=== PATIENT | male | born 1970 | race Caucasian/White ===

== ENCOUNTER 2023-01-22 23:26 | Emergency (ER) | payer OTHER ==
[~2023-01-22 23:26] MED LIST: CIPRO500 MG PO; LISINOPRIL10 MG PO; NKHM
== END 2023-01-23 00:06 | disposition home or self-care (01) ==
LOC: ED 23:26
DX: S05.01XA Injury of conjunctiva and corneal abrasion without foreign body, right eye, initial encounter (principal); W51.XXXA Accidental striking against or bumped into by another person, initial encounter; Y93.89 Activity, other specified; Y92.89 Other specified places as the place of occurrence of the external cause; Y99.8 Other external cause status

== ENCOUNTER 2023-03-02 13:05 | Emergency (ER) | payer OTHER | END 2023-03-02 18:19 | disposition home or self-care (01) | LOC: ED 13:05 | DX: S20.211A Contusion of right front wall of thorax, initial encounter (principal); Z79.899 Other long term (current) drug therapy; W51.XXXA Accidental striking against or bumped into by another person, initial encounter; Y93.89 Activity, other specified; Y92.89 Other specified places as the place of occurrence of the external cause; Y99.8 Other external cause status ==

== ENCOUNTER 2023-12-29 16:37 | Emergency (ER) | payer OTHER ==
[~2023-12-29] VITALS: Ht 193 cm; Wt 158.8 kg
[2023-12-29] MEDS ORDERED: ACETAMINOPHEN 325 MG TAB PO ONE (16:40)
[2023-12-29] MEDS ORDERED: Bacitracin Zinc 14 GM TUBE T ONE (16:40)
[2023-12-29] MEDS ORDERED: METFORMIN HYD1000 MG PO (17:23)
[2023-12-29] MEDS ORDERED: HYDROCHLOROTHIA25 M1 PO (17:24)
== END 2023-12-29 18:36 | disposition home or self-care (01) ==
LOC: ED 16:37
DX: S81.011A Laceration without foreign body, right knee, initial encounter (principal); I10 Essential (primary) hypertension; E11.9 Type 2 diabetes mellitus without complications; Z98.890 Other specified postprocedural states; W01.10XA Fall on same level from slipping, tripping and stumbling with subsequent striking against unspecified object, initial encounter; Y93.89 Activity, other specified; Y92.89 Other specified places as the place of occurrence of the external cause; Y99.0 Civilian activity done for income or pay

== ENCOUNTER 2024-05-22 20:02 | Emergency (ER) | payer OTHER ==
[~2024-05-22] VITALS: Ht 193 cm; Wt 158.8 kg
[~2024-05-22 20:02] MED LIST changes: +HYDROCHLOROTHIA25 M1 PO; +METFORMIN HYD1000 MG PO
[2024-05-22 21:27] LABS: BASO % 0.3 % (0.0-1.0); EOS % 0.1 % (1.0-4.0); HEMATOCRIT 48.6 % (42.0-52.0); LYMPH # 1.4 10*3/uL (1.3-4.4); LYMPH % 10.8 % (27.0-41.0); MEAN CELL VOLUME 90.8 fl (80.0-94.0); MEAN CORPUSCULAR HGB 30.3 pg (27.0-31.0); MEAN CORPUSCULAR HGB CONC 33.3 g/dl (33.0-37.0); MEAN PLATELET VOLUME 10.5 fl (9.6-12.3); MONO # 0.5 10*3/uL (0.1-1.0); NEUT % 84.4 % (47.0-73.0); PLATELET COUNT AUTOMATED 252 10*3/uL (130-400); RED BLOOD COUNT 5.35 10*6/uL (4.50-5.90); RED CELL DISTRI WIDTH 12.8 % (0-14.5)
[2024-05-22 21:38] LABS: ACT PARTIAL THROMBO TIME 25.2 SECONDS (20.0-32.1)
[2024-05-22 21:50] LABS: ALKALINE PHOSPHATASE 70 U/L (46-116); BUN 15 mg/dl (9-23); CHLORIDE 101 mmol/L (98-107); LIPASE 35 U/L (12-53); POTASSIUM 4.1 mmol/L (3.4-5.1); SGPT/ALT 19 U/L (5-49); TOTAL PROTEIN 7.4 gm/dL (6.0-8.0)
== END 2024-05-23 00:19 | disposition home or self-care (01) ==
LOC: ED 20:02
PROVIDERS: Internal Medicine
DX: E86.0 Dehydration (principal); R53.83 Other fatigue; E11.9 Type 2 diabetes mellitus without complications; I10 Essential (primary) hypertension; Z98.890 Other specified postprocedural states

== ENCOUNTER 2024-07-22 01:07 | Emergency (ER) | payer OTHER ==
[~2024-07-22] VITALS: Ht 193 cm; Wt 172.9 kg
[2024-07-22 01:41] LABS: BASO % 0.2 % (0.0-1.0); EOS # 0.1 10*3/uL (0.0-0.4); EOS % 0.6 % (1.0-4.0); HEMATOCRIT 40.7 % (42.0-52.0); LYMPH # 1.4 10*3/uL (1.3-4.4); LYMPH % 11.3 % (27.0-41.0); MEAN CELL VOLUME 90.8 fl (80.0-94.0); MEAN CORPUSCULAR HGB 29.9 pg (27.0-31.0); MEAN CORPUSCULAR HGB CONC 32.9 g/dl (33.0-37.0); MONO # 0.8 10*3/uL (0.1-1.0); MONO % 6.3 % (3.0-9.0); NEUT % 81.1 % (47.0-73.0); PLATELET COUNT AUTOMATED 255 10*3/uL (130-400); RED BLOOD COUNT 4.48 10*6/uL (4.50-5.90); RED CELL DISTRI WIDTH 12.7 % (0-14.5); WHITE BLOOD COUNT 12.3 10*3/uL (4.8-10.8)
[2024-07-22 02:22] LABS: ALKALINE PHOSPHATASE 61 U/L (46-116); BUN 13 mg/dl (9-23); CHLORIDE 99 mmol/L (98-107); LIPASE 50 U/L (12-53); POTASSIUM 3.7 mmol/L (3.4-5.1); SGPT/ALT 16 U/L (5-49); TOTAL PROTEIN 7.6 gm/dL (6.0-8.0)
[2024-07-22] MEDS ORDERED: Ketorolac Tromethamine 30 MG/ML VIAL IV ONE (02:55)
[2024-07-22] MEDS ORDERED: SODIUM CHLORIDE 0.9% 1,000 ML IV ONE (02:55)
[2024-07-22] MEDS ORDERED: INSULIN REGULAR, HUMAN 1 UNIT/0.01 ML IV ONE (02:55)
[2024-07-22] MEDS ORDERED: METHOCARBAMOL 500 MG TAB PO ONE (03:45)
[2024-07-22] MEDS ORDERED: NAPROSYN500 MG PO (04:05)
[2024-07-22] MEDS ORDERED: METHOCARBAMOL750 M1 PO (04:05)
[2024-07-23] MEDS ORDERED: RYBELSUS7 MG PO (20:38)
[2024-07-23] MEDS ORDERED: AMOX-CLAV 875-1 EACH PO (23:53)
[2024-07-23] MEDS ORDERED: HYDROCODONE-AC1 EAC1 PO (23:53)
== END 2024-07-22 04:17 | disposition home or self-care (01) ==
LOC: ED 01:07
PROVIDERS: Internal Medicine
DX: S29.012A Strain of muscle and tendon of back wall of thorax, initial encounter (principal); D72.829 Elevated white blood cell count, unspecified; R00.0 Tachycardia, unspecified; I10 Essential (primary) hypertension; E11.65 Type 2 diabetes mellitus with hyperglycemia; Z98.890 Other specified postprocedural states; X58.XXXA Exposure to other specified factors, initial encounter; Y93.89 Activity, other specified; Y92.009 Unspecified place in unspecified non-institutional (private) residence as the place of occurrence of the external cause; Y99.8 Other external cause status

== ENCOUNTER 2024-07-23 19:54 | Emergency (ER) | payer OTHER ==
[~2024-07-23] VITALS: Ht 193 cm; Wt 163.3 kg
[~2024-07-23 19:54] MED LIST changes: +METHOCARBAMOL750 M1 PO; +NAPROSYN500 MG PO
[2024-07-23] MEDS ORDERED: RYBELSUS7 MG PO (20:38)
[2024-07-23] MEDS ORDERED: SODIUM CHLORIDE 0.9% 1,000 ML IV ONE (20:50)
[2024-07-23] MEDS ORDERED: Ketorolac Tromethamine 15 MG/ML VIAL IV ONE (20:55)
[2024-07-23] MEDS ORDERED: methylPREDNISolone sod succ 125 MG VIAL IV ONE (20:55)
[2024-07-23 21:01] LABS: BASO % 0.3 % (0.0-1.0); EOS # 0.2 10*3/uL (0.0-0.4); HEMATOCRIT 39.9 % (42.0-52.0); LYMPH # 1.2 10*3/uL (1.3-4.4); LYMPH % 8.1 % (27.0-41.0); MEAN CELL VOLUME 90.3 fl (80.0-94.0); MEAN CORPUSCULAR HGB 30.3 pg (27.0-31.0); MEAN CORPUSCULAR HGB CONC 33.6 g/dl (33.0-37.0); MEAN PLATELET VOLUME 9.5 fl (9.6-12.3); MONO # 0.9 10*3/uL (0.1-1.0); NEUT # 12.7 10*3/uL (2.3-7.9); NEUT % 84.3 % (47.0-73.0); PLATELET COUNT AUTOMATED 292 10*3/uL (130-400); RED BLOOD COUNT 4.42 10*6/uL (4.50-5.90); RED CELL DISTRI WIDTH 12.6 % (0-14.5)
[2024-07-23] MEDS ORDERED: IOHEXOL 350 MG/ML 100 ML VIAL IV ONE (21:05)
[2024-07-23] MEDS ORDERED: SODIUM CHLORIDE 0.9% 100 ML BAG IV ONE (21:05)
[2024-07-23 21:17] LABS: BUN 15 mg/dl (9-23); CHLORIDE 101 mmol/L (98-107); POTASSIUM 3.8 mmol/L (3.4-5.1)
[2024-07-23 23:04] LABS: BILIRUBIN Negative (Negative); BLOOD Negative (Negative); CLARITY Clear (Clear); COLOR Yellow (Yellow); GLUCOSE 1+ (Negative); KETONE 2+ (Negative); LEUKO ESTERASE Negative (Negative); NITRITE Negative (Negative); PH 5.5 (4.5-8.0); SPECIFIC GRAVITY >= 1.030 (1.001-1.030)
[2024-07-23 23:18] LABS: HYALINE CAST 0-2; RBC 0-2 rbc/hpf (0-2)
[2024-07-23] MEDS ORDERED: Amoxicillin/Clavulanate Pota 875 MG TAB PO ONE (23:45)
[2024-07-23] MEDS ORDERED: HYDROCODONE-AC1 EAC1 PO (23:53)
[2024-07-23] MEDS ORDERED: AMOX-CLAV 875-1 EACH PO (23:53)
== END 2024-07-24 00:44 | disposition home or self-care (01) ==
LOC: ED 19:54
PROVIDERS: Nurse Practitioner Family
DX: S29.012A Strain of muscle and tendon of back wall of thorax, initial encounter (principal); I10 Essential (primary) hypertension; D72.829 Elevated white blood cell count, unspecified; J90 Pleural effusion, not elsewhere classified; E11.9 Type 2 diabetes mellitus without complications; Z98.890 Other specified postprocedural states; X58.XXXA Exposure to other specified factors, initial encounter; Y93.89 Activity, other specified; Y92.89 Other specified places as the place of occurrence of the external cause; Y99.8 Other external cause status

== ENCOUNTER 2024-09-01 16:15 | Emergency (ER) | payer OTHER ==
[~2024-09-01] VITALS: Ht 193 cm; Wt 152.4 kg
[~2024-09-01 16:15] MED LIST changes: +AMOX-CLAV 875-1 EACH PO; +HYDROCODONE-AC1 EAC1 PO; +RYBELSUS7 MG PO
[2024-09-01 16:58] LABS: BASO % 0.2 % (0.0-1.0); EOS % 0.2 % (1.0-4.0); HEMATOCRIT 34.2 % (42.0-52.0); LYMPH # 1.5 10*3/uL (1.3-4.4); LYMPH % 9.9 % (27.0-41.0); MEAN CORPUSCULAR HGB 27.6 pg (27.0-31.0); MEAN CORPUSCULAR HGB CONC 30.7 g/dl (33.0-37.0); MEAN PLATELET VOLUME 9.3 fl (9.6-12.3); MONO # 0.6 10*3/uL (0.1-1.0); MONO % 3.5 % (3.0-9.0); NEUT # 13.3 10*3/uL (2.3-7.9); NEUT % 85.6 % (47.0-73.0); PLATELET COUNT AUTOMATED 390 10*3/uL (130-400); RED CELL DISTRI WIDTH 13.5 % (0-14.5); WHITE BLOOD COUNT 15.6 10*3/uL (4.8-10.8)
[2024-09-01 17:19] LABS: ALKALINE PHOSPHATASE 84 U/L (46-116); BUN 14 mg/dl (9-23); CHLORIDE 99 mmol/L (98-107); POTASSIUM 4.2 mmol/L (3.4-5.1); SGPT/ALT 66 U/L (5-49); TOTAL PROTEIN 7.6 gm/dL (6.0-8.0)
[2024-09-01] MEDS ORDERED: Ketorolac Tromethamine 30 MG/ML VIAL IV ONE (17:50)
[2024-09-01] MEDS ORDERED: SODIUM CHLORIDE 0.9% 100 ML BAG IV ONE (18:40)
[2024-09-01] MEDS ORDERED: IOHEXOL 350 MG/ML 100 ML VIAL IV ONE ×2 (18:40→21:32)
[2024-09-01] MEDS ORDERED: SODIUM CHLORIDE 0.9% 100 ML IV ONE (21:32)
[2024-09-01] MEDS ORDERED: BUMETANIDE 1 MG/4 ML VIAL IV ONE (22:45)
== END 2024-09-01 23:59 | disposition left against medical advice (07) ==
LOC: ED 16:15
PROVIDERS: Emergency Medicine
DX: A41.9 Sepsis, unspecified organism (principal); R07.89 Other chest pain; R06.00 Dyspnea, unspecified; I10 Essential (primary) hypertension; E11.9 Type 2 diabetes mellitus without complications; J90 Pleural effusion, not elsewhere classified; R79.89 Other specified abnormal findings of blood chemistry; D72.829 Elevated white blood cell count, unspecified; D64.9 Anemia, unspecified; J18.9 Pneumonia, unspecified organism; E43 Unspecified severe protein-calorie malnutrition; Z68.1 Body mass index [BMI] 19.9 or less, adult; Z53.29 Procedure and treatment not carried out because of patient's decision for other reasons; Z98.890 Other specified postprocedural states

== ENCOUNTER 2024-09-02 11:32 | Emergency (ER) | payer OTHER ==
[~2024-09-02] VITALS: Wt 152.4 kg
[2024-09-02 12:58] LABS: BASO % 0.3 % (0.0-1.0); EOS % 0.3 % (1.0-4.0); LYMPH # 1.4 10*3/uL (1.3-4.4); MEAN CELL VOLUME 89.4 fl (80.0-94.0); MEAN CORPUSCULAR HGB 27.5 pg (27.0-31.0); MEAN CORPUSCULAR HGB CONC 30.8 g/dl (33.0-37.0); MEAN PLATELET VOLUME 9.4 fl (9.6-12.3); MONO # 0.6 10*3/uL (0.1-1.0); MONO % 3.9 % (3.0-9.0); NEUT % 84.9 % (47.0-73.0); PLATELET COUNT AUTOMATED 439 10*3/uL (130-400); RED BLOOD COUNT 4.14 10*6/uL (4.50-5.90); RED CELL DISTRI WIDTH 13.5 % (0-14.5); WHITE BLOOD COUNT 14.1 10*3/uL (4.8-10.8)
[2024-09-02 13:17] LABS: BUN 11 mg/dl (9-23); CHLORIDE 99 mmol/L (98-107); POTASSIUM 3.8 mmol/L (3.4-5.1)
[2024-09-02] MEDS ORDERED: Acetaminophen/Hydrocodone 5 MG/325 MG TABLET PO ONE (13:30)
[2024-09-02] MEDS ORDERED: Ampicillin Sodium/Sulbactam 3 GM in SODIUM CHLORIDE 0.9% 100 ML IV ONE (14:05)
== END 2024-09-02 15:14 | disposition left against medical advice (07) ==
LOC: ED 11:32
PROVIDERS: Nurse Practitioner Family
DX: J90 Pleural effusion, not elsewhere classified (principal); D64.9 Anemia, unspecified; Z53.29 Procedure and treatment not carried out because of patient's decision for other reasons; Z98.890 Other specified postprocedural states

== ENCOUNTER 2025-01-04 16:51 | Inpatient (IN) | payer OTHER ==
[~2025-01-04] VITALS: Ht 193 cm; Wt 147.4 kg
[2025-01-04 17:01] VITALS: BP 137/85
[2025-01-04 17:42] LABS: BASO % 0.3 % (0.0-1.0); EOS % 0.3 % (1.0-4.0); HEMATOCRIT 36.5 % (42.0-52.0); MEAN CELL VOLUME 86.5 fl (80.0-94.0); MEAN CORPUSCULAR HGB 26.3 pg (27.0-31.0); MEAN CORPUSCULAR HGB CONC 30.4 g/dl (33.0-37.0); MONO # 0.8 10*3/uL (0.1-1.0); MONO % 7.3 % (3.0-9.0); NEUT # 8.9 10*3/uL (2.3-7.9); NEUT % 77.9 % (47.0-73.0); PLATELET COUNT AUTOMATED 422 10*3/uL (130-400); RED BLOOD COUNT 4.22 10*6/uL (4.50-5.90); WHITE BLOOD COUNT 11.4 10*3/uL (4.8-10.8)
[2025-01-04 18:03] LABS: ALKALINE PHOSPHATASE 98 U/L (46-116); BUN 16 mg/dl (9-23); CHLORIDE 97 mmol/L (98-107); POTASSIUM 4.5 mmol/L (3.4-5.1); SGPT/ALT 61 U/L (5-49); TOTAL PROTEIN 7.9 gm/dL (6.0-8.0)
[2025-01-04 19:35] VITALS: BP 125/78
[2025-01-04] MEDS ORDERED: AZITHROMYCIN 250 ML IV ONE (20:25)
[2025-01-04] MEDS ORDERED: cefTRIAXone Sodium 1 GM/10 ML SYR IV ONE (20:25)
[2025-01-04] MEDS ORDERED: IOHEXOL 300 MG/ML 100 ML VIAL IV ONE (20:35)
[2025-01-04] MEDS ORDERED: TEMAZEPAM 15 MG CAP PO PRN (21:05)
[2025-01-04] MEDS ORDERED: BISACODYL 10 MG SUPP R PRN (21:05)
[2025-01-04] MEDS ORDERED: BISACODYL 5 MG TAB PO PRN (21:05)
[2025-01-04] MEDS ORDERED: Acetaminophen/Hydrocodone 5 MG/325 MG TABLET PO PRN (21:05)
[2025-01-04] MEDS ORDERED: Ondansetron Hydrochloride 4 MG/2 ML VIAL IV PRN (21:05)
[2025-01-04] MEDS ORDERED: Magnesium Hydroxide 30 ML UDC PO PRN (21:05)
[2025-01-04] MEDS ORDERED: ACETAMINOPHEN 650 MG SUPP R PRN (21:05)
[2025-01-04] MEDS ORDERED: ACETAMINOPHEN 325 MG TAB PO PRN (21:05)
[2025-01-04] MEDS ORDERED: DEXTROSE 10 % IN WATER 250 ML IV PRN (22:15)
[2025-01-04 23:15] VITALS: BP 138/76
[2025-01-05 01:52] LABS: BASO % 0.2 % (0.0-1.0); EOS % 0.2 % (1.0-4.0); HEMATOCRIT 34.4 % (42.0-52.0); MEAN CELL VOLUME 84.9 fl (80.0-94.0); MEAN CORPUSCULAR HGB 26.4 pg (27.0-31.0); MEAN CORPUSCULAR HGB CONC 31.1 g/dl (33.0-37.0); MEAN PLATELET VOLUME 8.8 fl (9.6-12.3); MONO # 0.8 10*3/uL (0.1-1.0); MONO % 6.3 % (3.0-9.0); NEUT # 9.7 10*3/uL (2.3-7.9); NEUT % 78.3 % (47.0-73.0); PLATELET COUNT AUTOMATED 438 10*3/uL (130-400); RED BLOOD COUNT 4.05 10*6/uL (4.50-5.90); RED CELL DISTRI WIDTH 16.2 % (0-14.5); WHITE BLOOD COUNT 12.4 10*3/uL (4.8-10.8)
[2025-01-05 02:36] LABS: ALKALINE PHOSPHATASE 90 U/L (46-116); BUN 12 mg/dl (9-23); CHLORIDE 96 mmol/L (98-107); CHOLESTEROL 96 mg/dL (<200); FREE T4 1.09 ng/dl (0.89-1.76); POTASSIUM 4.3 mmol/L (3.4-5.1); SGPT/ALT 52 U/L (5-49); TOTAL PROTEIN 7.5 gm/dL (6.0-8.0); TRIGLYCERIDES 76 mg/dl (<150)
[2025-01-05 02:43] LABS: LDL CHOLESTEROL 62 mg/dL (9-159)
[2025-01-05] MEDS ORDERED: SODIUM CHLORIDE 0.9% 1,000 ML IV ONE (03:05)
[2025-01-05] MEDS ORDERED: HEPARIN SODIUM 250 ML IV SCH (03:30)
[2025-01-05 05:00] LABS: VITAMIN D, 25-HYDROXY 8.5 ng/mL (30-100)
[2025-01-05] MEDS ORDERED: INSULIN LISPRO 1 UNIT/0.01 ML SQ SCH (07:30)
[2025-01-05] MEDS ORDERED: SODIUM CHLORIDE 0.9% 100 ML IV ONE (07:48)
[2025-01-05] MEDS ORDERED: IOHEXOL 350 MG/ML 100 ML VIAL IV ONE (07:48)
[2025-01-05 08:00] VITALS: BP 145/92
[2025-01-05] MEDS ORDERED: LISINOPRIL 10 MG TAB PO SCH (10:00)
[2025-01-05] MEDS ORDERED: hydroCHLOROthiazide 25 MG TAB PO SCH (10:00)
[2025-01-05] MEDS ORDERED: Enoxaparin Sodium 40 MG/0.4 ML SYR SC SCH (10:00)
[2025-01-05] MEDS ORDERED: ERGOCALCIFEROL 50,000 IU CAP (1.25 MG) PO SCH (10:00)
[2025-01-05 12:00] VITALS: BP 124/75
[2025-01-05 16:00] VITALS: BP 131/78
[2025-01-05] MEDS ORDERED: CEFEPIME HCL IN DEXTROSE 5 % 50 ML IV SCH (18:00)
[2025-01-05] MEDS ORDERED: SODIUM CHLORIDE 0.9% 1,000 ML IV SCH (19:05)
[2025-01-05 20:00] VITALS: BP 104/96; BP 113/67
[2025-01-05] MEDS ORDERED: AZITHROMYCIN 250 ML IV SCH (20:00)
[2025-01-05] MEDS ORDERED: cefTRIAXone Sodium 1 GM in SYRINGE INFUSION 10 ML IV SCH (21:00)
[2025-01-06] VITALS: BP 101/51
[2025-01-06 05:06] LABS: HBsAG SCREEN Negative (Negative); HCV Ab Non Reactive (Non Reactive); HEP B CORE Ab, IgM Negative (Negative)
[2025-01-06 08:00] VITALS: BP 109/51
[2025-01-06 12:00] VITALS: BP 109/51; BP 129/64
[2025-01-06 16:00] VITALS: BP 119/68
[2025-01-06 20:00] VITALS: BP 106/55
[2025-01-07] VITALS: BP 108/57
[2025-01-07 06:10] LABS: BASO # 0.1 10*3/uL (0.0-0.1); BASO % 0.4 % (0.0-1.0); EOS # 0.1 10*3/uL (0.0-0.4); EOS % 0.5 % (1.0-4.0); HEMATOCRIT 37.2 % (42.0-52.0); MEAN CELL VOLUME 86.1 fl (80.0-94.0); MEAN CORPUSCULAR HGB 25.9 pg (27.0-31.0); MEAN CORPUSCULAR HGB CONC 30.1 g/dl (33.0-37.0); MEAN PLATELET VOLUME 9.2 fl (9.6-12.3); MONO # 0.9 10*3/uL (0.1-1.0); MONO % 6.6 % (3.0-9.0); NEUT # 10.7 10*3/uL (2.3-7.9); NEUT % 78.3 % (47.0-73.0); PLATELET COUNT AUTOMATED 491 10*3/uL (130-400); RED BLOOD COUNT 4.32 10*6/uL (4.50-5.90); RED CELL DISTRI WIDTH 16.3 % (0-14.5); WHITE BLOOD COUNT 13.6 10*3/uL (4.8-10.8)
[2025-01-07 06:38] LABS: BUN 9 mg/dl (9-23); CHLORIDE 96 mmol/L (98-107); POTASSIUM 3.9 mmol/L (3.4-5.1)
[2025-01-07 08:00] VITALS: BP 106/69
[2025-01-07 12:21] VITALS: BP 104/60
[2025-01-07 16:00] VITALS: BP 114/69
[2025-01-07 20:00] VITALS: BP 115/69
[2025-01-08] VITALS: BP 108/68
[2025-01-08 06:18] LABS: BASO # 0.1 10*3/uL (0.0-0.1); BASO % 0.4 % (0.0-1.0); EOS # 0.1 10*3/uL (0.0-0.4); EOS % 0.5 % (1.0-4.0); HEMATOCRIT 37.9 % (42.0-52.0); MEAN CELL VOLUME 84.4 fl (80.0-94.0); MEAN CORPUSCULAR HGB 26.1 pg (27.0-31.0); MEAN CORPUSCULAR HGB CONC 30.9 g/dl (33.0-37.0); MONO # 0.9 10*3/uL (0.1-1.0); MONO % 5.9 % (3.0-9.0); NEUT # 11.3 10*3/uL (2.3-7.9); NEUT % 75.6 % (47.0-73.0); PLATELET COUNT AUTOMATED 499 10*3/uL (130-400); RED BLOOD COUNT 4.49 10*6/uL (4.50-5.90); RED CELL DISTRI WIDTH 16.3 % (0-14.5)
[2025-01-08 06:24] LABS: BUN 11 mg/dl (9-23); CHLORIDE 97 mmol/L (98-107); POTASSIUM 4.3 mmol/L (3.4-5.1)
[2025-01-08 08:00] VITALS: BP 123/59
[2025-01-08 11:58] VITALS: BP 97/53
[2025-01-08 16:00] VITALS: BP 103/68
[2025-01-09] VITALS: BP 99/59
[2025-01-09 04:00] VITALS: BP 97/59
[2025-01-09 07:01] LABS: BASO # 0.1 10*3/uL (0.0-0.1); BASO % 0.4 % (0.0-1.0); EOS # 0.2 10*3/uL (0.0-0.4); EOS % 1.1 % (1.0-4.0); HEMATOCRIT 39.3 % (42.0-52.0); MEAN CELL VOLUME 85.4 fl (80.0-94.0); MEAN CORPUSCULAR HGB CONC 31.6 g/dl (33.0-37.0); MONO # 0.7 10*3/uL (0.1-1.0); MONO % 5.4 % (3.0-9.0); NEUT # 9.8 10*3/uL (2.3-7.9); NEUT % 72.1 % (47.0-73.0); PLATELET COUNT AUTOMATED 503 10*3/uL (130-400); RED CELL DISTRI WIDTH 16.4 % (0-14.5); WHITE BLOOD COUNT 13.6 10*3/uL (4.8-10.8)
[2025-01-09 07:24] LABS: BUN 14 mg/dl (9-23); CHLORIDE 97 mmol/L (98-107); POTASSIUM 4.5 mmol/L (3.4-5.1)
[2025-01-09 08:00] VITALS: BP 115/68
[2025-01-09 12:00] VITALS: BP 115/69
[2025-01-09 16:00] VITALS: BP 129/67
[2025-01-09 20:00] VITALS: BP 118/73
[2025-01-10] VITALS: BP 120/75
[2025-01-10 06:49] LABS: BASO # 0.1 10*3/uL (0.0-0.1); BASO % 0.5 % (0.0-1.0); EOS # 0.2 10*3/uL (0.0-0.4); EOS % 1.4 % (1.0-4.0); HEMATOCRIT 41.2 % (42.0-52.0); MEAN CORPUSCULAR HGB 25.7 pg (27.0-31.0); MEAN CORPUSCULAR HGB CONC 29.9 g/dl (33.0-37.0); MEAN PLATELET VOLUME 8.9 fl (9.6-12.3); MONO # 0.7 10*3/uL (0.1-1.0); MONO % 5.2 % (3.0-9.0); NEUT # 8.7 10*3/uL (2.3-7.9); NEUT % 67.8 % (47.0-73.0); PLATELET COUNT AUTOMATED 496 10*3/uL (130-400); RED BLOOD COUNT 4.79 10*6/uL (4.50-5.90); RED CELL DISTRI WIDTH 16.4 % (0-14.5); WHITE BLOOD COUNT 12.9 10*3/uL (4.8-10.8)
[2025-01-10 06:56] LABS: BUN 12 mg/dl (9-23); CHLORIDE 98 mmol/L (98-107)
[2025-01-10 08:00] VITALS: BP 101/67
[2025-01-10 12:00] VITALS: BP 109/72
[2025-01-10] MEDS ORDERED: VIBRA-TAB100 MG PO (14:04)
== END 2025-01-10 15:16 | disposition home or self-care (01) | DRG 871 ==
LOC: ED 16:51 → 5E 20:31 → EDHOLD 20:31 → 5E 22:48
PROVIDERS: Internal Medicine; Nurse Practitioner Family; Student in an Organized Health Care Education/Training Program; ADMIT Internal Medicine; ATTEND Internal Medicine
DX: A41.9 Sepsis, unspecified organism (principal); E43 Unspecified severe protein-calorie malnutrition; J85.1 Abscess of lung with pneumonia; J15.69 Pneumonia due to other Gram-negative bacteria; E87.1 Hypo-osmolality and hyponatremia; J90 Pleural effusion, not elsewhere classified; D75.839 Thrombocytosis, unspecified; R74.01 Elevation of levels of liver transaminase levels; D64.9 Anemia, unspecified; I10 Essential (primary) hypertension; E11.65 Type 2 diabetes mellitus with hyperglycemia; E66.9 Obesity, unspecified; E55.9 Vitamin D deficiency, unspecified; K76.0 Fatty (change of) liver, not elsewhere classified; Z79.899 Other long term (current) drug therapy; Z79.01 Long term (current) use of anticoagulants; Z79.2 Long term (current) use of antibiotics; Z90.49 Acquired absence of other specified parts of digestive tract; Z83.3 Family history of diabetes mellitus; Z82.49 Family history of ischemic heart disease and other diseases of the circulatory system; Z68.39 Body mass index [BMI] 39.0-39.9, adult

== ENCOUNTER 2025-01-24 19:00 | Emergency (ER) | payer OTHER ==
[~2025-01-24] VITALS: Ht 193 cm; Wt 134.3 kg
[~2025-01-24 19:00] MED LIST changes: +VIBRA-TAB100 MG PO
[2025-01-24] MEDS ORDERED: Ketorolac Tromethamine 60 MG/2 ML VIAL IM ONE (19:20)
[2025-01-24] MEDS ORDERED: HYDROCODONE-AC1 EAC1 PO (20:51)
== END 2025-01-24 21:00 | disposition home or self-care (01) ==
LOC: ED 19:00
DX: S20.212A Contusion of left front wall of thorax, initial encounter (principal); J90 Pleural effusion, not elsewhere classified; E11.9 Type 2 diabetes mellitus without complications; E87.1 Hypo-osmolality and hyponatremia; D64.9 Anemia, unspecified; I10 Essential (primary) hypertension; E11.65 Type 2 diabetes mellitus with hyperglycemia; Z90.49 Acquired absence of other specified parts of digestive tract; Z98.890 Other specified postprocedural states; W19.XXXA Unspecified fall, initial encounter; Y93.89 Activity, other specified; Y92.238 Other place in hospital as the place of occurrence of the external cause; Y99.0 Civilian activity done for income or pay

== ENCOUNTER 2025-06-04 06:56 | Inpatient (IN) | payer OTHER ==
[~2025-06-04] VITALS: Ht 193 cm; Wt 131.5 kg
[2025-06-04 07:04] VITALS: BP 93/57
[2025-06-04] MEDS ORDERED: SODIUM CHLORIDE 0.9% 1,000 ML IV ONE (07:20)
[2025-06-04 07:53] LABS: BASO # 0.1 10*3/uL (0.0-0.1); BASO % 0.4 % (0.0-1.0); EOS # 0.0 10*3/uL (0.0-0.4); EOS % 0.1 % (1.0-4.0); MEAN CELL VOLUME 88.2 fl (80.0-94.0); MEAN CORPUSCULAR HGB 28.1 pg (27.0-31.0); MEAN PLATELET VOLUME 9.3 fl (9.6-12.3); MONO # 0.8 10*3/uL (0.1-1.0); MONO % 6.1 % (3.0-9.0); NEUT # 11.0 10*3/uL (2.3-7.9); NEUT % 80.1 % (47.0-73.0); NUCLEATED RED BLOOD CELL 0.0 % (0.0-0.0); NUCLEATED RED BLOOD CELL 0.0 10*3/uL (0.0-0.0); PLATELET COUNT AUTOMATED 323 10*3/uL (130-400); RED CELL DISTRI WIDTH 14.1 % (0-14.5)
[2025-06-04 08:10] LABS: ACT PARTIAL THROMBO TIME 26.2 SECONDS (20.0-32.1)
[2025-06-04 08:12] LABS: BUN 19 mg/dl (9-23)
[2025-06-04] MEDS ORDERED: AZITHROMYCIN 250 ML IV ONE (08:50)
[2025-06-04] MEDS ORDERED: SODIUM CHLORIDE 0.9% 1,000 ML IV SCH (08:50)
[2025-06-04] MEDS ORDERED: MAGNESIUM SULFATE 100 ML IV ONE (10:00)
[2025-06-04] MEDS ORDERED: Ondansetron Hydrochloride 4 MG/2 ML VIAL IV PRN (12:20)
[2025-06-04] MEDS ORDERED: ACETAMINOPHEN 325 MG TAB PO PRN (12:20)
[2025-06-04] MEDS ORDERED: BISACODYL 5 MG TAB PO PRN (12:20)
[2025-06-04] MEDS ORDERED: DEXTROSE 50% 25 GM/50 ML VIAL IV PRN (12:35)
[2025-06-04] MEDS ORDERED: INSULIN LISPRO 1 UNIT/0.01 ML SQ SCH (16:30)
[2025-06-04 20:00] VITALS: BP 109/79
[2025-06-05] VITALS: BP 135/80
[2025-06-05] MEDS ORDERED: SODIUM CHLORIDE 0.9% 100 ML BAG IV ONE (01:25)
[2025-06-05] MEDS ORDERED: IOHEXOL 350 MG/ML 100 ML VIAL IV ONE (01:25)
[2025-06-05 06:26] LABS: BASO # 0.0 10*3/uL (0.0-0.1); BASO % 0.3 % (0.0-1.0); EOS # 0.1 10*3/uL (0.0-0.4); EOS % 0.5 % (1.0-4.0); MEAN CELL VOLUME 88.9 fl (80.0-94.0); MEAN CORPUSCULAR HGB 28.5 pg (27.0-31.0); MEAN PLATELET VOLUME 9.4 fl (9.6-12.3); MONO # 0.8 10*3/uL (0.1-1.0); MONO % 6.8 % (3.0-9.0); NEUT # 9.0 10*3/uL (2.3-7.9); NEUT % 73.2 % (47.0-73.0); NUCLEATED RED BLOOD CELL 0.0 % (0.0-0.0); NUCLEATED RED BLOOD CELL 0.0 10*3/uL (0.0-0.0); PLATELET COUNT AUTOMATED 304 10*3/uL (130-400); RED CELL DISTRI WIDTH 14.0 % (0-14.5)
[2025-06-05 06:47] LABS: BUN 13 mg/dl (9-23); FREE T4 1.11 ng/dl (0.89-1.76); SGPT/ALT 17 U/L (5-49)
[2025-06-05 08:00] VITALS: BP 110/66
[2025-06-05] MEDS ORDERED: AZITHROMYCIN 250 ML IV SCH (09:00)
[2025-06-05] MEDS ORDERED: Cefepime Hydrochloride 2 GM in SODIUM CHLORIDE 0.9% 50 ML IV SCH (10:00)
[2025-06-05 12:00] VITALS: BP 117/68
[2025-06-05 16:00] VITALS: BP 118/76
[2025-06-05 22:45] VITALS: BP 113/69
[2025-06-06 01:36] VITALS: BP 110/62
[2025-06-06 06:25] LABS: BASO # 0.0 10*3/uL (0.0-0.1); BASO % 0.4 % (0.0-1.0); EOS # 0.1 10*3/uL (0.0-0.4); EOS % 0.8 % (1.0-4.0); MEAN CELL VOLUME 89.2 fl (80.0-94.0); MEAN CORPUSCULAR HGB 28.1 pg (27.0-31.0); MEAN PLATELET VOLUME 9.4 fl (9.6-12.3); MONO # 0.7 10*3/uL (0.1-1.0); MONO % 6.5 % (3.0-9.0); NEUT # 8.1 10*3/uL (2.3-7.9); NEUT % 73.5 % (47.0-73.0); NUCLEATED RED BLOOD CELL 0.0 % (0.0-0.0); NUCLEATED RED BLOOD CELL 0.0 10*3/uL (0.0-0.0); PLATELET COUNT AUTOMATED 314 10*3/uL (130-400); RED CELL DISTRI WIDTH 13.9 % (0-14.5)
[2025-06-06 06:59] LABS: BUN 14 mg/dl (9-23)
[2025-06-06 08:00] VITALS: BP 103/65
[2025-06-06 12:00] VITALS: BP 105/72
[2025-06-06 16:00] VITALS: BP 108/63
[2025-06-06] MEDS ORDERED: Ampicillin Sodium/Sulbactam 3 GM in SODIUM CHLORIDE 0.9% 100 ML IV SCH (18:00)
[2025-06-06 20:00] VITALS: BP 133/84
[2025-06-07 04:00] VITALS: BP 108/71
[2025-06-07 06:07] LABS: BASO # 0.0 10*3/uL (0.0-0.1); BASO % 0.2 % (0.0-1.0); EOS # 0.1 10*3/uL (0.0-0.4); EOS % 1.6 % (1.0-4.0); MEAN CELL VOLUME 89.2 fl (80.0-94.0); MEAN CORPUSCULAR HGB 28.5 pg (27.0-31.0); MEAN PLATELET VOLUME 9.5 fl (9.6-12.3); MONO # 0.6 10*3/uL (0.1-1.0); MONO % 6.7 % (3.0-9.0); NEUT # 5.3 10*3/uL (2.3-7.9); NEUT % 64.7 % (47.0-73.0); NUCLEATED RED BLOOD CELL 0.0 % (0.0-0.0); NUCLEATED RED BLOOD CELL 0.0 10*3/uL (0.0-0.0); PLATELET COUNT AUTOMATED 350 10*3/uL (130-400); RED CELL DISTRI WIDTH 13.7 % (0-14.5)
[2025-06-07] MEDS ORDERED: ERGOCALCIFEROL 50,000 IU CAP (1.25 MG) PO ONE (07:15)
[2025-06-07 08:00] VITALS: BP 101/62
[2025-06-07] MEDS ORDERED: Cholecalciferol 2,000 UNIT TABLET (50 MCG) PO SCH (10:00)
[2025-06-07] MEDS ORDERED: SODIUM BICARBONATE 4.2% 5 ML VIAL ONE (10:20)
[2025-06-07] MEDS ORDERED: AMOX-CLAV 875-1 EACH PO (14:48)
[2025-06-07] MEDS ORDERED: VITAMIN D350 MCG PO (14:50)
[2025-06-07] MEDS ORDERED: VITAMIN D31250 MC2 PO (14:51)
[2025-06-07] MEDS ORDERED: METFORMIN HYD1000 MG PO (14:53)
[2025-06-07 16:00] VITALS: BP 103/64
== END 2025-06-07 18:05 | disposition left against medical advice (07) | DRG 871 ==
LOC: ED 06:56 → 4E 10:00 → EDHOLD 10:00 → 5E 13:00 → 4E 06-05 19:23
PROVIDERS: Internal Medicine; Registered Nurse; ADMIT Student in an Organized Health Care Education/Training Program; ATTEND Student in an Organized Health Care Education/Training Program
PROC: 0BBN3ZX Excision of Right Pleura, Percutaneous Approach, Diagnostic (ICD-10-PCS; principal; 2025-06-07)
DX: A41.9 Sepsis, unspecified organism (principal); E43 Unspecified severe protein-calorie malnutrition; J18.9 Pneumonia, unspecified organism; E87.1 Hypo-osmolality and hyponatremia; J91.8 Pleural effusion in other conditions classified elsewhere; E83.42 Hypomagnesemia; D64.9 Anemia, unspecified; I10 Essential (primary) hypertension; E11.9 Type 2 diabetes mellitus without complications; Z53.29 Procedure and treatment not carried out because of patient's decision for other reasons; Z91.148 Patient's other noncompliance with medication regimen for other reason; Z79.899 Other long term (current) drug therapy; Z79.01 Long term (current) use of anticoagulants; Z79.2 Long term (current) use of antibiotics; Z90.49 Acquired absence of other specified parts of digestive tract; Z83.3 Family history of diabetes mellitus; Z82.49 Family history of ischemic heart disease and other diseases of the circulatory system; Z68.35 Body mass index [BMI] 35.0-35.9, adult

== ENCOUNTER 2025-11-03 17:16 | Inpatient (IN) | payer OTHER ==
[~2025-11-03] VITALS: Ht 193 cm; Wt 171.7 kg
[~2025-11-03 17:16] MED LIST changes: +PERFLUTREN PROTEIN-A MICROSPHR 3 ML VIAL IV ONE; +VITAMIN D31250 MC2 PO; +VITAMIN D350 MCG PO
[2025-11-03 17:28] VITALS: BP 147/89
[2025-11-03 17:54] LABS: BASO # 0.0 10*3/uL (0.0-0.1); BASO % 0.5 % (0.0-1.0); EOS # 0.1 10*3/uL (0.0-0.4); EOS % 1.5 % (1.0-4.0); MEAN CELL VOLUME 93.0 fl (80.0-94.0); MEAN CORPUSCULAR HGB 29.3 pg (27.0-31.0); MEAN PLATELET VOLUME 10.2 fl (9.6-12.3); MONO # 0.3 10*3/uL (0.1-1.0); MONO % 5.0 % (3.0-9.0); NEUT # 4.3 10*3/uL (2.3-7.9); NEUT % 71.9 % (47.0-73.0); NUCLEATED RED BLOOD CELL 0.0 % (0.0-0.0); NUCLEATED RED BLOOD CELL 0.0 10*3/uL (0.0-0.0); PLATELET COUNT AUTOMATED 158 10*3/uL (130-400); RED CELL DISTRI WIDTH 14.7 % (0-14.5)
[2025-11-03 18:06] LABS: ACT PARTIAL THROMBO TIME 27.2 SECONDS (20.0-32.1)
[2025-11-03 18:17] LABS: BUN 22 mg/dl (9-23); SGPT/ALT 11 U/L (5-49)
[2025-11-03] MEDS ORDERED: FUROSEMIDE 40 MG/4 ML VIAL IV ONE (18:40)
[2025-11-03] MEDS ORDERED: MAGNESIUM SULFATE 50 ML IV ONE (19:20)
[2025-11-03] MEDS ORDERED: BISACODYL 5 MG TAB PO PRN (21:15)
[2025-11-03] MEDS ORDERED: BISACODYL 10 MG SUPP R PRN (21:15)
[2025-11-03] MEDS ORDERED: Ondansetron Hydrochloride 4 MG/2 ML VIAL IV PRN (21:15)
[2025-11-03] MEDS ORDERED: Acetaminophen/Hydrocodone 5 MG/325 MG TABLET PO PRN (21:15)
[2025-11-03 21:20] VITALS: BP 141/79
[2025-11-03 21:40] VITALS: BP 141/92
[2025-11-03] MEDS ORDERED: INSULIN LISPRO 1 UNIT/0.01 ML SQ SCH (22:00)
[2025-11-03] MEDS ORDERED: DEXTROSE 50% 25 GM/50 ML VIAL IV PRN (22:00)
[2025-11-04 06:01] LABS: BASO # 0.0 10*3/uL (0.0-0.1); BASO % 0.5 % (0.0-1.0); BUN 19 mg/dl (9-23); EOS # 0.1 10*3/uL (0.0-0.4); EOS % 2.0 % (1.0-4.0); MEAN CELL VOLUME 92.6 fl (80.0-94.0); MEAN CORPUSCULAR HGB 29.3 pg (27.0-31.0); MEAN PLATELET VOLUME 10.3 fl (9.6-12.3); MONO # 0.4 10*3/uL (0.1-1.0); MONO % 6.7 % (3.0-9.0); NEUT # 3.4 10*3/uL (2.3-7.9); NEUT % 59.7 % (47.0-73.0); NUCLEATED RED BLOOD CELL 0.0 % (0.0-0.0); NUCLEATED RED BLOOD CELL 0.0 10*3/uL (0.0-0.0); PLATELET COUNT AUTOMATED 159 10*3/uL (130-400); RED CELL DISTRI WIDTH 14.9 % (0-14.5)
[2025-11-04 08:00] VITALS: BP 108/56
[2025-11-04] MEDS ORDERED: FUROSEMIDE 40 MG/4 ML VIAL IV SCH (10:00)
[2025-11-04] MEDS ORDERED: FUROSEMIDE 40 MG/4 ML VIAL IV ONE (11:25)
[2025-11-04 12:00] VITALS: BP 124/77
[2025-11-04 16:00] VITALS: BP 120/80
[2025-11-04 20:00] VITALS: BP 131/75
[2025-11-05] VITALS: BP 133/84
[2025-11-05 04:40] LABS: BUN 19 mg/dl (9-23)
[2025-11-05 08:00] VITALS: BP 118/73
[2025-11-05] MEDS ORDERED: FUROSEMIDE 40 MG IV SCH (10:00)
[2025-11-05] MEDS ORDERED: EMPAGLIFLOZIN 10 MG TABLET PO SCH (10:00)
[2025-11-05] MEDS ORDERED: FUROSEMIDE 40 MG/4 ML VIAL IV SCH (10:00)
[2025-11-05] MEDS ORDERED: SACUBITRIL/VALSARTAN 24 MG-26 MG TABLET PO SCH (10:00)
[2025-11-05] MEDS ORDERED: SPIRONOLACTONE 25 MG TAB PO SCH (10:00)
[2025-11-05] MEDS ORDERED: METOPROLOL SUCCINATE XR 25 MG TAB PO SCH (10:00)
[2025-11-05 12:00] VITALS: BP 134/55
[2025-11-05 16:00] VITALS: BP 128/80
[2025-11-05 20:00] VITALS: BP 116/67
[2025-11-06] VITALS: BP 132/91
[2025-11-06 05:03] LABS: BUN 16 mg/dl (9-23)
[2025-11-06 08:00] VITALS: BP 95/31
[2025-11-06] MEDS ORDERED: FUROSEMIDE 20 MG/2 ML VIAL IV ONE ×2 (08:35→11:50)
[2025-11-06 08:41] VITALS: BP 122/78
[2025-11-06 12:00] VITALS: BP 122/78
[2025-11-06 16:00] VITALS: BP 113/69
[2025-11-06 20:00] VITALS: BP 139/81
[2025-11-06] MEDS ORDERED: TEMAZEPAM 15 MG CAP PO PRN (22:00)
[2025-11-07 05:16] LABS: BUN 15 mg/dl (9-23)
[2025-11-07 08:00] VITALS: BP 137/93
[2025-11-07] MEDS ORDERED: METOPROLOL SUCC25 M2 PO (10:47)
[2025-11-07] MEDS ORDERED: ALDACTONE25 MG PO (10:47)
[2025-11-07] MEDS ORDERED: JARDIANCE10 MG PO (10:47)
[2025-11-07] MEDS ORDERED: ENTRESTO 24 MG1 EACH PO (10:47)
[2025-11-07] MEDS ORDERED: LASIX40 MG PO (10:47)
== END 2025-11-07 11:35 | disposition home or self-care (01) | DRG 291 ==
LOC: ED 17:16 → 4E 20:34 → EDHOLD 20:34 → 4E 21:18
PROVIDERS: Nurse Practitioner Family; Student in an Organized Health Care Education/Training Program; ADMIT Internal Medicine; ATTEND Internal Medicine
DX: I11.0 Hypertensive heart disease with heart failure (principal); I50.23 Acute on chronic systolic (congestive) heart failure; Z68.42 Body mass index [BMI] 45.0-49.9, adult; E83.42 Hypomagnesemia; E11.65 Type 2 diabetes mellitus with hyperglycemia; K76.0 Fatty (change of) liver, not elsewhere classified; I07.1 Rheumatic tricuspid insufficiency; D64.9 Anemia, unspecified; E66.813 Obesity, class 3; Z79.899 Other long term (current) drug therapy; Z79.01 Long term (current) use of anticoagulants; Z91.199 Patient's noncompliance with other medical treatment and regimen due to unspecified reason; Z79.2 Long term (current) use of antibiotics; Z90.49 Acquired absence of other specified parts of digestive tract; Z83.3 Family history of diabetes mellitus; Z82.49 Family history of ischemic heart disease and other diseases of the circulatory system